=== PATIENT | female | born 1965 | race Caucasian/White ===

== ENCOUNTER 2019-06-10 10:58 | Emergency (ER) | payer BC ==
--- NOTE | 2019-06-10 11:10 | UC ---
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 to be tested for COVID 19 - History of Current Complaint Stated Complaint: COUGH,SHORTNESS OF BREATH Hx Obtained From: Patient Onset/Duration: Gradual Onset Timing: Constant Severity Initially: Mild Severity Currently: Moderate Pain Intensity: 0 Pain Scale Used: 0-10 Numeric Character: Cough: Nonproductive Aggravating Factors: Nothing Alleviating Factors: Nothing Associated Signs And Symptoms: Positive: Dyspnea, Fever, Chills, Nasal Congestion, Sinus Discomfort - Allergies/Home Medications Allergies/Adverse Reactions: Allergies Allergy/AdvReac Type Severity Reaction Status Date / Time MS Codeine [Codeine] Allergy Intermediate Rash Verified 06/10/19 12:10 aspirin Allergy Unknown Verified 06/10/19 12:11 Reaction Details Home Medications: Home Medications Benzonatate CAP* [Tessalon CAP*] 100 - 200 mg PO TID PRN #28 cap 06/10/19 [Rx] Cetirizine* [ZyrTEC 10 MG TAB*] 1 tab PO DAILY 06/10/19 [History Confirmed 06/09] Promethazine/Dextromethorphan [Promethazine-Dm Syrup] 5 ml PO Q4H PRN #120 syrup MDD 30 06/10/19 [Rx] PMH/Surg Hx/FS Hx/Imm Hx - Additional Past Medical History Additional PMH: seasonal allergies Previously Healthy: Yes - Surgical History Surgery Procedure, Year, and Place: laparoscopy, , knee surgery and appendectomy and ovarian cyst removal - Family History Known Family History: Positive: Hypertension - Social History Substance Use Type: None Review of Systems All Other Systems Reviewed And Are Negative: Yes Constitutional: Positive: Fever, Chills, Fatigue Skin: Positive: Negative Eyes: Positive: Negative ENT: Positive: Nasal Discharge, Sinus Congestion Respiratory: Positive: Shortness Of Breath - at times, Cough Cardiovascular: Positive: Negative Gastrointestinal: Positive: Negative Genitourinary: Positive: Negative Motor: Positive: Negative Neurovascular: Positive: Negative Musculoskeletal: Positive: Myalgia Neurological/Mental Status: Positive: Headache Physical Exam Triage Information Reviewed: Yes Appearance: Well-Appearing, No Pain Distress, Well-Nourished Vital Signs Reviewed: Yes Eyes: Positive: Conjunctiva Clear ENT: Positive: Hearing grossly normal, Nasal congestion, Nasal drainage. Negative: Tonsillar swelling, Tonsillar exudate, Hoarse voice, Sinus tenderness , Uvula midline Dental Exam: Normal Neck: Positive: Supple, Nontender, No Lymphadenopathy Respiratory: Positive: Lungs clear, Normal breath sounds, No respiratory distress, No accessory muscle use, Other: - frequent dry cough Cardiovascular: Positive: RRR, No Murmur Musculoskeletal: Positive: ROM Intact, No Edema Neurological: Positive: Alert Psychological Exam: Normal Respiratory Course/Dx - Differential Dx/Diagnosis Provider Diagnosis: Viral syndrome, Cough Discharge ED - Sign-Out/Discharge Documenting (check all that apply): Patient Departure All imaging exams completed and their final reports reviewed: No Studies - Discharge Plan Condition: Stable Disposition: HOME Prescriptions: Benzonatate CAP* [Tessalon CAP*] 100 - 200 mg PO TID PRN #28 cap PRN Reason: Cough Promethazine/Dextromethorphan [Promethazine-Dm Syrup] 5 ml PO Q4H PRN #120 syrup MDD 30 PRN Reason: Cough Patient Education Materials: Viral Syndrome (ED) Additional Instructions: TO ER for new or worsening symptoms influenza test (-) COVID 19 test pending the health dept will contact you test takes 2-6 days see In-house Isolation sheet - Billing Disposition and Condition Condition: STABLE Disposition: Home
--- OUTSIDE RECORDS SUMMARY | 2019-06-10 11:58 | XMS REPORT | Continuity of Care Document ---
:1965 External Reference #:[id number] Author Name Lab (transmitted by agent of provider Archana Carreon) Address [address] [place] [address] Problems Active Problems Provider Date Allergic rhinitis Annalee Da Silva M.D. 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 Onset: 04/23/2019 Chronic allergic conjunctivitis Annalee Da Silva M.D. Onset: 04/23/2019 Allergic rhinitis due to animals Annalee Da Silva M.D. Onset: 04/23/2019 Allergic rhinitis due to pollen Annalee Da Silva M.D. Onset: 04/23/2019 Social History Type Date Description Comments Sex Unknown ETOH Use Drinks 1 Alcoholic Beverage Per Week ETOH Use Occasionally consumes alcohol ETOH Use Rarely consumes beer ETOH Use Rarely consumes wine ETOH Use Occasionally consumes liquor ETOH Use Occasionally consumed alcohol in the past ETOH Use Hot itchy red rash if drink wine or champagne Tobacco Use Start: Unknown Patient has never smoked Recreational Drug Use Never Used Drugs Allergies, Adverse Reactions, Alerts Active Allergies Reaction Severity Comments Date Codeine Unaware 04/23/2019 Egg Whites Nausea and vomiting 04/23/2019 Wine Hot, itchy rash 04/23/2019 Onion Unknown 04/23/2019 Carrots unknown 04/23/2019 Garlic Preparation headaches 04/23/2019 Metals rash except gold and silver 04/23/2019 Medications Active Medications SIG Qnty Indications Ordering Provider Date Zyrtec Allergy 1 every day Unknown 10mg Tablets Flonase Allergy 1 spray each Unknown Relief nostril everyday 50mcg/Act Suspension Immunizations Description No Information Available Vital Signs Date Vital Result Comment 05/21/2019 8:59am Height 58 inches 4'10" Weight 238.00 lb Weight 107.957 kg Respiratory Rate 18 /min Heart Rate 73 /min O2 % BldC Oximetry 96 % BP Systolic 140 mmHg BP Diastolic 80 mmHg BMI (Body Mass Index) 49.7 kg/m2 05/14/2019 10:13am Height 58 inches 4'10" Weight 238.00 lb Weight 107.957 kg Respiratory Rate 20 /min Heart Rate 70 /min O2 % BldC Oximetry 99 % BMI (Body Mass Index) 49.7 kg/m2 Results Description No Information Available Procedures Date Code Description Status 05/28/2019 32136 Extract 1-10 Completed 05/21/2019 54165 Skin Test Scratch # Of Units ____ Completed 05/21/2019 16253 Pulmonary Function Test Completed 05/14/2019 38375 Skin Test Scratch # Of Units ____ Completed Medical Devices Description No Information Available Encounters Type Date Location Provider Dx Diagnosis Office Visit 05/21/2019 Reynold Lee J30.1 Allergic rhinitis due 9:00a [employer] to pollen J30.81 Allergic rhinitis due to animal (cat) (dog) hair and dander J30.2 Other seasonal allergic rhinitis Office Visit 05/14/2019 10:20a Corey Avila23 Encounter for [employer] immunization J30.1 Allergic rhinitis due to pollen J30.81 Allergic rhinitis due to animal (cat) (dog) hair and dander J30.2 Other seasonal allergic rhinitis J30.89 Other allergic rhinitis J45.40 Moderate persistent asthma, uncomplicated Office Visit 04/23/2019 9:40a Reynold Da Silva M.D. J30.1 Allergic rhinitis due to pollen J30.81 Allergic rhinitis due to animal (cat) (dog) hair and dander H10.45 Other chronic allergic conjunctivitis Z91.012 Allergy to eggs Z23 Encounter for immunization Assessments Date Code Description Provider 05/28/2019 J30.1 Allergic rhinitis due to pollen Annalee Da Silva M.D. 05/28/2019 J30.1 Allergic rhinitis due to pollen Lab 05/28/2019 J30.81 Allergic rhinitis due to animal (cat) (dog) Annalee Da Silva M.D. hair and dander 05/28/2019 J30.81 Allergic rhinitis due to animal (cat) (dog) Lab hair and dander 05/28/2019 J30.89 Other allergic rhinitis Annalee Da Silva M.D. 05/28/2019 J30.89 Other allergic rhinitis Lab 05/28/2019 J30.2 Other seasonal allergic rhinitis Annalee Da Silva M.D. 05/28/2019 J30.2 Other seasonal allergic rhinitis Lab 05/21/2019 Z91.012 Allergy to eggs Annalee Da Silva M.D. 05/21/2019 J30.1 Allergic rhinitis due to pollen Annalee Da Silva M.D. 05/21/2019 J30.1 Allergic rhinitis due to pollen Lily Jesus, [employer] 05/21/2019 J30.81 Allergic rhinitis due to animal (cat) (dog) Annalee Da Silva M.D. hair and dander 05/21/2019 J30.81 Allergic rhinitis due to animal (cat) (dog) Lily Uldrich, [employer] hair and dander 05/21/2019 J30.2 Other seasonal allergic rhinitis Annalee Da Silva M.D. 05/21/2019 J30.2 Other seasonal allergic rhinitis Lily Ulich, [employer] 05/14/2019 Z23 Encounter for immunization Annalee Da Silva M.D. 05/14/2019 Z23 Encounter for immunization Lilystas Lee, [employer] 05/14/2019 J30.1 Allergic rhinitis due to pollen Annalee Da Silva M.D. 05/14/2019 J30.1 Allergic rhinitis due to pollen Lily Uldrich, [employer] 05/14/2019 J30.81 Allergic rhinitis due to animal (cat) (dog) Annalee Da Silva M.D. hair and dander 05/14/2019 J30.81 Allergic rhinitis due to animal (cat) (dog) Lily Uldrich, [employer] hair and dander 05/14/2019 J30.2 Other seasonal allergic rhinitis Annalee Da Silva M.D. 05/14/2019 J30.2 Other seasonal allergic rhinitis Lilystas Lee, [facility] 05/14/2019 J30.89 Other allergic rhinitis Lilyvincent Lee, [facility] 05/14/2019 J45.40 Moderate persistent asthma, uncomplicated Lilyvincent Lee , [facility] 04/23/2019 J30.1 Allergic rhinitis due to pollen Annalee Da Silva M.D. 04/23/2019 J30.81 Allergic rhinitis due to animal (cat) (dog) Annalee Da Silva M.D. hair and dander 04/23/2019 H10.45 Other chronic allergic conjunctivitis Annalee Da Silva M.D. 04/23/2019 Z91.012 Allergy to eggs Annalee Da Silva M.D. 04/23/2019 Z23 Encounter for immunization Annalee Da Silva M.D. Plan of Treatment Future Appointment(s):06/04/2019 9:00 am - Allergy Injection at [place] Functional Status Description No Information Available Mental Status Description No Information Available Referrals Description No Information Available
--- OUTSIDE RECORDS SUMMARY | 2019-06-10 11:58 | XMS REPORT | Continuity of Care Document ---
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 Annalee Da Silva [...] Available Vital Signs Date Vital Result Comment 05/14/2019 10:13am Height 58 inches 4'10" Weight 238.00 lb Weight 107.957 kg Respiratory Rate 20 /min Heart Rate 70 /min O2 % BldC Oximetry 99 % BMI (Body Mass Index) 49.7 kg/m2 04/23/2019 9:49am Height 58 inches 4'10" Weight 238.00 lb Weight 107.957 kg Respiratory Rate 20 /min Heart Rate 72 /min O2 % BldC Oximetry 95 % BP Systolic 136 mmHg BP Diastolic 70 mmHg BMI (Body Mass Index) 49.7 kg/m2 Results Description No Information Available Procedures Date Code Description Status 05/14/2019 16383 Skin Test Scratch # Of Units ____ Completed Medical Devices Description No Information Available Encounters Type Date Location Provider Dx Diagnosis Office Visit 05/14/2019 Reynold Lee Z23 Encounter for 10:20a [employer] immunization J30.1 Allergic rhinitis due to pollen [...] for immunization Assessments Date Code Description Provider 05/14/2019 Z23 Encounter for immunization Lilystas Lee, [employer] 05/14/2019 J30.1 Allergic rhinitis due to pollen Lilystas Lee [employer] 05/14/2019 J30.81 Allergic rhinitis due to animal (cat) (dog) Lily Cierraich [employer] hair and dander 05/14/2019 J30.2 Other seasonal allergic rhinitis Lilystas Lee, [employer] 05/14/2019 J30.89 Other allergic rhinitis Lily Jesus, [employer] 05/14/2019 J45.40 Moderate persistent asthma, uncomplicated Lilyvincent Lee , [employer] 04/23/2019 J30.1 Allergic rhinitis due to pollen Annalee Da Silva M.D. 04/23/2019 J30.81 Allergic rhinitis due to animal (cat) (dog) Annalee Da Silva M.D. hair and dander 04/23/2019 H10.45 Other chronic allergic conjunctivitis Annalee Da Silva M.D. 04/23/2019 Z91.012 Allergy to eggs Annalee Da Silva M.D. 04/23/2019 Z23 Encounter for immunization Annalee Da Silva M.D. Plan of Treatment Future Appointment(s):05/21/2019 9:00 am - Allergy Testing at [facility]/21/2019 9:00 am - DENISE Larry-Jose Antonio at [facility]/14/2019 - DENISE Larry- CZ23 Encounter for zmczdkktsrdeX29.1 Allergic rhinitis due to esstxbM51.81 Allergic rhinitis due to animal (cat) (dog) hair and jhmgtwG02.2 Other seasonal allergic ufglotbaQ61.89 Other allergic lyqxzrdlG20.40 Moderate persistent asthma , uncomplicatedFollow up:food testing but full PFT priorRecommendations: Continue all medications as prescribed.Refrain from wearing perfumes/scented colognes while visitingour office. Continue the Flonase 2 sprays daily Continue the Zyrtec daily Discussed the three ways in which allergies are managed: (1) avoidance measures; (2) medications; (3) allergy immunotherapy. Discussed environmental controls. -Dust mite control barriers are recommended for mattress and pillows. Make sure the product specifies a pore size rating of 2-5 microns. Bigger and unspecified pore sizes may not be effective. -Wash all bedding in hot water once weekly. -Keep bedroom humidity below 50%. Dust mites thrive well in high humidity. Make an appointment for further skin testing to foods. You make start allergy shots in 1 week. Functional Status Description No Information Available Mental Status Description No Information Available Referrals Description No Information Available
--- OUTSIDE RECORDS SUMMARY | 2019-06-10 11:58 | XMS REPORT | Continuity of Care Document ---
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 J30.81 Allergic rhinitis due to animal (cat) (dog) hair and dander J30.2 Other seasonal allergic rhinitis Office Visit 05/14/2019 10:20a Corey Avila23 Encounter for [employer] immunization J30.1 Allergic rhinitis due to pollen [...] for immunization Assessments Date Code Description Provider 05/21/2019 J30.1 Allergic rhinitis due to pollen Lily Ulnahomy, [employer] 05/21/2019 J30.81 Allergic rhinitis due to animal (cat) (dog) Lily Uldrich, [employer] hair and dander 05/21/2019 J30.2 Other seasonal allergic rhinitis Lily Uldrich, [employer] 05/14/2019 Z23 Encounter for immunization Annalee Da Silva M.D. 05/14/2019 Z23 Encounter for immunization Lily Uldrich, [employer] PROCESSING AUDIT[employer]C 05/14/2019 J30.1 Allergic rhinitis due to pollen Annalee Da Silva M.D. 05/14/2019 J30.1 Allergic rhinitis due to pollen Lily Lee, [employer] PROCESS[employer]IT[employer] 05/14/2019 J30.81 Allergic rhinitis due to animal (cat) (dog) Annalee Da Silva M.D. hair and dander 05/14/2019 J30.81 Allergic rhinitis due to animal (cat) (dog) DENISE Larry-Jose Antonio hair and dander 05/14/2019 J30.2 Other seasonal allergic rhinitis Annalee Da Silva M.D. 05/14/2019 J30.2 Other seasonal allergic rhinitis TYRESE LarryP-C 05/14/2019 J30.89 Other allergic rhinitis DENISE Larry-C 05/14/2019 J45.40 Moderate persistent asthma, uncomplicated DENISE Larry-C 04/23/2019 J30.1 Allergic rhinitis due to pollen [...] Appointment(s):06/04/2019 9:00 am - Allergy Injection at [id number] - DENISE Larry-CJ30.1 Allergic rhinitis due to jhazleJ93.81 Allergic rhinitis due to animal (cat) (dog) hair and gijlyrO81.2 Other seasonal allergic rhinitisRecommendations:Continue all medications as prescribed.Refrain from wearing perfumes/scented colognes while visitingour office. Continue the Flonase 2 sprays daily Continue the Zyrtec daily You make start allergy shots in 1 week. Your skin testing showed no reaction to egg, peanut, and carrot so you may start eating them in small amounts You were sensitive to garlic and onion. PFT done today. Pulmonary Function Studies are done by exhaling (blowing ) into a machine to detect an asthmatic condition or other lung problem. Results reviewed and were normal, did not show reversibility. Functional Status Description No Information Available Mental Status Description No Information Available Referrals Description No Information Available
--- OUTSIDE RECORDS SUMMARY | 2019-06-10 11:58 | XMS REPORT | Continuity of Care Document ---
:1965 External Reference #:[id number] Author Name Annalee Da Silva M.D. Address [address] [place] [address] Problems Active Problems Provider Date Allergy to [...] Available Vital Signs Date Vital Result Comment 04/23/2019 9:49am Height 58 inches 4'10" Weight 238.00 lb Weight 107.957 kg Respiratory Rate 20 /min Heart Rate 72 /min O2 % BldC Oximetry 95 % BP Systolic 136 mmHg BP Diastolic 70 mmHg BMI (Body Mass Index) 49.7 kg/m2 Results Description No Information Available Procedures Description No Information Available Medical Devices Description No Information Available Encounters Description No Information Available Assessments Date Code Description Provider 04/23/2019 J30.1 Allergic rhinitis due to pollen Annalee Da Silva M.D. 04/23/2019 J30.81 Allergic rhinitis due to animal (cat) (dog) Annalee Da Silva M.D. hair and dander 04/23/2019 H10.45 Other chronic allergic conjunctivitis Annalee Da Silva M.D. 04/23/2019 Z91.012 Allergy to eggs Annalee Da Silva M.D. 04/23/2019 Z23 Encounter for immunization Annalee Da Silva M.D. Plan of Treatment Future Appointment(s):05/14/2019 10:20 am - JUSTIN Larry at [id number] 10:00 am - Allergy Testing at [facility]/23/2019 - Annalee Da Silva M.D.J30.1 Allergic rhinitis due to wqpqubH61.81 Allergic rhinitis due to animal (cat) (dog) hair and wcwbgbS61.45 Other chronic allergic llcvmbnbjsmvdzD08.012 Allergy to eggsZ23 Encounter for immunizationFollow up:1 week or when convenient (JM in office) *PRICK TESTS: Specific drops of allergens are applied to scratches that have been placed on the patient's body. *DISCUSSION: After the evaluation is completed,the results and treatment choices will be explained. *TAKE NO ANTIHISTAMINES OR MEDICATIONS THAT CONTAIN ANTIHISTAMINES 72 HOURS PRIOR TO SKIN TESTING VISIT .Recommendations:Refrain from wearing perfumes/scented colognes while visiting our office. Patient to discuss an influenza vaccination with their primary-care provider. Educational materials provided to the patient. Skin testing attempted but the affect of the Zyrtec interfered with out test OK to use Flonase 1 spray in each nostril once or twice daily Also OK to use Zyrtec 10 mg nightly These can be used together Generally speaking any injection contains less egg then a cookie or cake, so you are likely to tolerate an injections and not have the reaction you have to scrambled or other cooked/ not baked, eggs Functional Status Description No Information Available Mental Status Description No Information Available Referrals Description No Information Available
[2019-06-10 12:10] VITALS: BP 107/64
[2019-06-10 12:10] LABS: Influenza A Molecular Negative (Negative); Influenza B Molecular Negative (Negative)
== END 2019-06-10 12:48 | disposition home or self-care (01) ==
LOC: UCEAST 10:58
DX: B34.9 Viral infection, unspecified (principal); R05 Cough; R51 Headache; R09.81 Nasal congestion; R06.00 Dyspnea, unspecified; M79.10 Myalgia, unspecified site; Z88.5 Allergy status to narcotic agent; Z88.6 Allergy status to analgesic agent
CPT/HCPCS: 99213; G0463; U0002

== ENCOUNTER 2021-04-25 05:43 | Inpatient (IN) ==
[2021-04-25] MEDS ORDERED: Lactated Ringers 1000 ml BAG 1,000 ML IV SCH (06:00)
[2021-04-25] MEDS ORDERED: Buffered Lidocaine 1% SYRIN 1 ml INTRADERM ONE (06:00)
[2021-04-25] MEDS ORDERED: ceFAZolin 2 GM PREMIX 2 GM/50 ML BAG ONE (06:08)
[2021-04-25] MEDS ORDERED: Lidocaine 1% w EPI 1:200,000 SDV 30 ML VIAL ONE (06:56)
[2021-04-25] MEDS ORDERED: Vancomycin 1,000 MG VIAL ONE (06:57)
[2021-04-25] MEDS ORDERED: Bupivacaine 0.5% SDV PF 30ML VIAL ONE (06:57)
[2021-04-25 07:01] LABS: Hematocrit 34 % (35-47); Hemoglobin 11.7 g/dL (12.0-16.0); Mean Corpuscular HGB Conc 34 g/dL (31-36); Mean Corpuscular Hemoglobin 30 pg (27-31); Mean Corpuscular Volume 88 fL (80-97); Mean Platelet Volume 9.5 fL (7.4-10.4); Platelet Count 225 10^3/uL (150-450); Red Cell Distribution Width 14 % (10-15); White Blood Count 5.8 10^3/uL (3.5-10.8)
[2021-04-25 07:07] LABS: INR 1.11 (0.86-1.15)
[2021-04-25 07:17] LABS: Calcium 8.9 mg/dL (8.6-10.3); Potassium 3.6 mmol/L (3.5-5.0)
[2021-04-25] MEDS ORDERED: ROPIVACAINE 5 MG/ML 30 ML BTL (0.5%) ONE (07:19)
[2021-04-25] MEDS ORDERED: Midazolam 2 mg/2 ml VIAL 1 mg/ml 2 ml VIAL (2 mg) ONE (07:33)
[2021-04-25] MEDS ORDERED: fentaNYL 100 mcg/2 ml 50 MCG/ML VIAL ONE ×3 (07:33→10:15)
[2021-04-25] MEDS ORDERED: Metoclopramide 5 MG/ML VIAL (10 mg) IV PRN (09:58)
[2021-04-25] MEDS ORDERED: fentaNYL 100 mcg/2 ml 50 MCG/ML VIAL IV PRN (09:58)
[2021-04-25] MEDS ORDERED: Ondansetron 4 mg VIAL 2 MG/ML 2 ml VIAL IV PRN ×2 (09:58→10:33)
[2021-04-25] MEDS ORDERED: Naloxone 0.4 mg VIAL 0.4 mg/ml 1 ml VIAL IV PRN (09:58)
[2021-04-25] MEDS ORDERED: HYDROmorphone 1 MG/1 ML SYRINGE IV PRN (09:58)
[2021-04-25] MEDS ORDERED: diPHENhydraMINE 25 mg TAB PO PRN (10:33)
[2021-04-25] MEDS ORDERED: diPHENhydraMINE IV 50 MG/ML 1 ml VIAL (BENADRYL) IV PRN (10:33)
[2021-04-25] MEDS ORDERED: Lactulose 30 ml UDC PO PRN (10:33)
[2021-04-25] MEDS ORDERED: Ondansetron ODT 4 mg TAB 4 MG TAB PO PRN (10:33)
[2021-04-25] MEDS ORDERED: Magnesium Hydroxide LIQ 30 ML UDC PO PRN (10:33)
[2021-04-25] MEDS: Lactated Ringers 1000 ml BAG 1,000 ML IV SCH (12:17)
[2021-04-25] MEDS: ceFAZolin 1 GM ADVAN 1 GM in NS 0.9% 50 ML 50 ML IVPB SCH (15:51)
[2021-04-25] MEDS: Magnesium Hydroxide LIQ 30 ML UDC PO SCH (21:13)
[2021-04-26] MEDS: ceFAZolin 1 GM ADVAN 1 GM in NS 0.9% 50 ML 50 ML IVPB SCH ×2 (00:19→07:44)
[2021-04-26] MEDS: Lactated Ringers 1000 ml BAG 1,000 ML IV SCH (04:27)
[2021-04-26 07:20] LABS: Hematocrit 30 % (35-47); Hemoglobin 10.1 g/dL (12.0-16.0); Platelet Count 214 10^3/uL (150-450)
[2021-04-26] MEDS: Magnesium Hydroxide LIQ 30 ML UDC PO SCH (07:44)
[2021-04-26 07:49] LABS: Calcium 8.9 mg/dL (8.6-10.3); Potassium 3.6 mmol/L (3.5-5.0); eGFR CKD-EPI 94.3 (>60)
[2021-04-26 07:54] VITALS: BP 109/63
[2021-04-26] MEDS ORDERED: Fluticasone NASAL SPRAY 50MCG 16 gm SPRAY BTL INTRANASAL SCH (09:00)
[2021-04-26] MEDS ORDERED: Vitamin THERAPEUTIC TAB PO SCH (09:00)
== END 2021-04-26 14:20 | disposition home health service (06) | DRG 302 ==
LOC: AA 05:43 → SSU 12:04
PROVIDERS: ADMIT Orthopaedic Surgery; ATTEND Orthopaedic Surgery